=== PATIENT | female | born 1990 | race Hispanic/Latino ===

== ENCOUNTER 2020-03-13 08:32 | Emergency (ER) | payer OTHER, MEDICAID, SELFPAY ==
--- NOTE | 2020-03-13 08:39 | ED_ITS ---
HPI - General Adult General Chief complaint: Dizziness Stated complaint: weakness Time Seen by Provider: 03/13/20 08:39 History of Present Illness HPI narrative: 29-year-old woman with a history of ovarian cysts and reflux, presents feeling weak, dizzy, shaking, dyspneic and noting heart palpitations. 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 She states that she has had similar symptoms before and has been evaluated but no specific etiology was noted. She notes that she has been slightly more constipated recently she complains of urinary frequency but no dysuria. She has some mild upper abdominal pain bilaterally but no specific flank pain. She has not had fevers, cough, headaches. She does note that she has chronic back and upper neck pain with decreased range of motion at the neck due to the pain and has a physical therapy appointment scheduled to begin dealing with these chronic issues. She notes over the past month she has been sleeping well but has had significantly increased anxiety Related Data Allergies Allergy/AdvReac Type Severity Reaction Status Date / Time No Known Drug Allergies Allergy Verified 03/13/20 08:52 Review of Systems Review of Systems Narrative: Remainder of review of systems including constitutional, ENT, cardiovascular, respiratory, GI, , musculoskeletal, skin, neurologic and psychiatric systems reviewed and are unremarkable except as noted in HPI. Patient History Medical History Acid reflux (Acute) Ovarian cyst (Acute) Social History Smoking Status: Never smoker Exam Narrative Exam Narrative: General: Healthy appearing, in no acute distress. Able to give a complete and coherent history. Well-nourished well-developed HEENT: Moist mucous membranes, normal sclera with reactive pupils, Neck: No JVD, supple, neck is able to turn 45? bilaterally in further than that causes tenderness. There is no midline spine tenderness nor paraspinous or tra pezius muscle spasm Respiratory: Lungs are clear to auscultation, no wheezing no rales no rhonchi. Full and symmetrical air movement Cardiac: Regular rate and rhythm no murmurs no bruits Abdomen: Soft nontender good bowel tones, no flank pain Skin: Warm and dry, no rashes Neurologic: Grossly neurologically intact with no obvious asymmetries or abnormalities Extremities: No trauma, well perfused Psych: Cooperative, appropriate insight and affect Initial Vital Signs Initial Vital Signs: Vital Signs Temperature 97.6 F 03/13/20 08:52 Pulse Rate 73 03/13/20 08:52 Respiratory Rate 16 03/13/20 08:52 Blood Pressure 117/58 L 03/13/20 08:52 Pulse Oximetry 100 03/13/20 08:52 Course Orders Ordered: ED Orders 03/13/20 09:25 COVID19 -ED/INPAT/OR/L&D Stat 03/13/20 09:40 Complete Blood Count AUTO DIFF Stat Comprehensive Metabolic Panel Stat Lipase Stat Magnesium Stat Urinalysis and Microscopic Stat Discontinued Medications Sodium Chloride (Normal Saline 0.9%) 1,000 mls @ 1,000 mls/hr IV BOLUS ONE Stop: 03/13/20 09:49 Last Admin: 03/13/20 09:47 Dose: 1,000 mls/hr Documented by: LOS Vital Signs Vital signs: Vital Signs - 8 hr 03/13/20 08:52 Temperature 97.6 F Pulse Rate 73 Respiratory Rate 16 Blood Pressure 117/58 L Pulse Oximetry 100 Medical Decision Making Medical Records Medical records reviewed: Yes I reviewed the patient's medical records. Lab Data Lab results reviewed: Yes I reviewed the patient's lab results. Result diagrams: 03/13/20 09:40 03/13/20 09:40 Labs: Lab Results 03/13/20 03/13/20 03/13/20 Range/Units 09: 09:40 09:40 WBC 7.4 (4.5-11.0) X10^3/uL RBC 4.28 (4.0-5.2) X10^6/uL Hgb 12.5 (12.0-16.0) g/dL Hct 37.0 (36-46) % MCV 86.5 (80-100) fL MCH 29.2 (26-34) PG MCHC 33.8 (30-36) % RDW 13.3 (11.6-14.8) % Plt Count 209 (150-400) X10^3/uL Neut % (Auto) 73.4 (50-75) % Lymph % (Auto) 20.9 L (25-40) % Wood % (Auto) 3.7 (3-14) % Eos % (Auto) 1.2 L (2-4) % Baso % (Auto) 0.8 (0-2) % Neut # (Auto) 5400 (1782-9868) /uL Lymph # (Auto) 1500 (5067-2219) /uL Wood # (Auto) 300 (0-900) /uL Eos # (Auto) 100 (0-450) /uL Baso # (Auto) 100 (0-100) /uL Sodium 136 L (137-145) mmol/L Potassium 3.6 (3.4-5.1) mmol/L Chloride 105 (98-107) mmol/L Carbon Dioxide 23 (22-32) mmol/L BUN 11 (7-17) mg/dL Creatinine 0.63 (0.52-1.04) mg/dL Estimated GFR > 60.0 (>60) mL/min BUN/Creatinine Ratio 17.5 (6-22) Glucose 101 H (70-100) mg/dL Calcium 9.2 (8.4-10.2) mg/dL Magnesium 2.0 (1.6-2.3) mg/dL Total Bilirubin 0.6 (0.2-1.3) mg/dL AST 32 (14-36) IU/L ALT 29 (<35) IU/L Alkaline Phosphatase 56 (38-126) U/L Total Protein 7.4 (6.3-8.2) g/dL Albumin 4.4 (3.5-5.0) g/dL Globulin 3.0 (1.7-4.1) g/dL Albumin/Globulin Ratio 1.5 (1.0-2.8) Lipase 145 (23-300) U/L Urine Color Urine Appearance Urine pH (4.5-8.0) Ur Specific [place] (1.000-1.035) Urine Protein (Negative) Urine Glucose (UA) (Negative) g/dL Urine Ketones (NEGATIVE) Urine Occult Blood (Negative) Urine Nitrate (Negative) Urine Bilirubin (NEGATIVE) Urine Urobilinogen (0.2) E.U./dL Ur Leukocyte Esterase (NEGATIVE) Urine RBC (0-5/HPF) Urine WBC (0-5/HPF) Ur Squamous Epith Cells (0-5/HPF) Urine Bacteria (None) Ur Culture Indicated? COVID-19 PCR Negative (Negative) 03/13/20 Range/Units 09:40 WBC (4.5-11.0) X10^3/uL RBC (4.0-5.2) X10^6/uL Hgb (12.0-16.0) g/dL Hct (36-46) % MCV (80-100) fL MCH (26-34) PG MCHC (30-36) % RDW (11.6-14.8) % Plt Count (150-400) X10^3/uL Neut % (Auto) (50-75) % Lymph % (Auto) (25-40) % Wood % (Auto) (3-14) % Eos % (Auto) (2-4) % Baso % (Auto) (0-2) % Neut # (Auto) (7592-1496) /uL Lymph # (Auto) (7189-2248) /uL Wood # (Auto) (0-900) /uL Eos # (Auto) (0-450) /uL Baso # (Auto) (0-100) /uL Sodium (137-145) mmol/L Potassium (3.4-5.1) mmol/L Chloride (98-107) mmol/L Carbon Dioxide (22-32) mmol/L BUN (7-17) mg/dL Creatinine (0.52-1.04) mg/dL Estimated GFR (>60) mL/min BUN/Creatinine Ratio (6-22) Glucose (70-100) mg/dL Calcium (8.4-10.2) mg/dL Magnesium (1.6-2.3) mg/dL Total Bilirubin (0.2-1.3) mg/dL AST (14-36) IU/L ALT (<35) IU/L Alkaline Phosphatase (38-126) U/L Total Protein (6.3-8.2) g/dL Albumin (3.5-5.0) g/dL Globulin (1.7-4.1) g/dL Albumin/Globulin Ratio (1.0-2.8) Lipase (23-300) U/L Urine Color Yellow Urine Appearance Clear Urine pH 8.0 (4.5-8.0) Ur Specific [place] 1.015 (1.000-1.035) Urine Protein Negative (Negative) Urine Glucose (UA) Negative (Negative) g/dL Urine Ketones Trace H (NEGATIVE) Urine Occult Blood Negative (Negative) Urine Nitrate Negative (Negative) Urine Bilirubin Negative (NEGATIVE) Urine Urobilinogen 0.2 (0.2) E.U./dL Ur Leukocyte Esterase Negative (NEGATIVE) Urine RBC None seen (0-5/HPF) Urine WBC 0-1/hpf (0-5/HPF) Ur Squamous Epith Cells 1-5 /hpf (0-5/HPF) Urine Bacteria Occasional (0-1) (None) Ur Culture Indicated? Cult not indicated COVID-19 PCR (Negative) Point of Care Testing Test Results Negative Point of care testing: Point of Care Testing Test Results Negative ECG Data Attestation: I personally reviewed and interpreted this ECG as follows: Interpretation: Sinus rhythm of 49 Normal intervals, normal axis no ischemic changes MDM Narrative Medical decision making narrative: 29-year-old woman with acute onset of constellation of symptoms. Has never had full workup for the same and has had similar symptoms. Will check cardiac workup and also Covid status. Labs are all unremarkable. No evidence of , acute infection, urinary tract infection, renal or liver dysfunction, electrolyte abnormality or acute coronary syndrome.. No evidence of [place] id and no clinical evidence of acute stroke. Feeling somewhat better after fluids. No significant pathologic findings to explain the dizziness she has experienced today. Reassurance is given she is safe for home discharge Discharge Plan Departure Patient Disposition: Home Clinical Impression: Dizziness Instructions: DI for Dizziness-Nonvertigo Activity Restrictions/Additional Instructions: Thank you for coming in today Your workup was very reassuring. There is no evidence of acute infection, stroke, heart attack or heart attack like syndrome, no pneumonia, no kidney or liver abnormalities and no diabetes. You did feel better after a bit of fluid. I suspect that with some time and after a good lunch you will feel significantly better. I wish you the best Referrals: Lizbeth Freire PA-C [Primary Care Provider] -
[2020-03-13 08:52] VITALS: BP 117/58; PULSE 73; RESP 16; TEMP 36.4; O2SAT 100; BMI 32.0
[2020-03-13 09:43] LABS: Add Manual Diff / Slide Review NO; Basophils Absolute Auto 100 /uL (0-100); Basophils Percent Auto 0.8 % (0-2); Eosinophils Absolute Auto 100 /uL (0-450); Eosinophils Percent Auto 1.2 % (2-4); Hemoglobin 12.5 g/dL (12.0-16.0); Lymphocytes Absolute Auto 1500 /uL (1100-4500); Lymphocytes Percent Auto 20.9 % (25-40); Mean Corpuscular HGB Conc 33.8 % (30-36); Mean Corpuscular Hemoglobin 29.2 PG (26-34); Mean Corpuscular Volume 86.5 fL (80-100); Monocytes Absolute Auto 300 /uL (0-900); Monocytes Percent Auto 3.7 % (3-14); Neutrophils Absolute Auto 5400 /uL (1500-7000); Neutrophils Percent Auto 73.4 % (50-75); Platelet Count 209 X10^3/uL (150-400); Red Blood Cell Count 4.28 X10^6/uL (4.0-5.2); Red Cell Distribution Width 13.3 % (11.6-14.8); White Blood Cell Count 7.4 X10^3/uL (4.5-11.0)
[2020-03-13] MEDS: SODIUM CHLORIDE 0.9% 1,000 ML 1000 ML IV (09:47)
[2020-03-13 09:54] LABS: RBC Urine None Seen (0-5/HPF)
[2020-03-13 09:56] LABS: Alanine Aminotransferase 29 IU/L (<35); Albumin 4.4 g/dL (3.5-5.0); Albumin Globulin Ratio 1.5 (1.0-2.8); Alkaline Phosphatase 56 U/L (38-126); Appearance Urine UA CLEAR; Aspartate Aminotransferase 32 IU/L (14-36); BUN Creatinine Ratio 17.5 (6-22); Bilirubin Total 0.6 mg/dL (0.2-1.3); Bilirubin Urine UA NEGATIVE (NEGATIVE); Blood Urea Nitrogen 11 mg/dL (7-17); Calcium 9.2 mg/dL (8.4-10.2); Carbon Dioxide 23 mmol/L (22-32); Chloride 105 mmol/L (98-107); Color Urine UA YELLOW; Estimated Glomerular Filt Rate > 60.0 mL/min (>60); Glucose 101 mg/dL (70-100); Glucose Urine UA NEGATIVE (Negative); HEMOLYSIS 19 (0-50); Ketones Urine UA TRACE (NEGATIVE); Leukocyte Esterase Urine UA NEGATIVE (NEGATIVE); Lipase 145 U/L (23-300); Nitrite Urine UA NEGATIVE (Negative); Occult Blood Urine UA NEGATIVE (Negative); Potassium 3.6 mmol/L (3.4-5.1); Protein Urine UA NEGATIVE (Negative); Sodium 136 mmol/L (137-145); Specific Gravity Urine UA 1.015 (1.000-1.035); Total Protein 7.4 g/dL (6.3-8.2); Urobilinogen Urine UA 0.2 E.U./dL (0.2)
[2020-03-13 09:57] LABS: COVID19 -Nasal RAPID Negative (Negative)
[2020-03-13 10:00] VITALS: BP 100/58; PULSE 57; RESP 15; O2SAT 100
[2020-03-13 10:06] LABS: Bacteria Urine Occasional (0-1); Culture Indicated Urine Cult Not Indicated; Squamous Epithelial Cell Urine 1-5 /HPF (0-5/HPF); WBC Urine 0-1/HPF (0-5/HPF)
[2020-03-13 11:17] VITALS: BP 109/61; PULSE 62; RESP 16; O2SAT 100
== END 2020-03-13 11:20 | disposition home or self-care (01) ==
PROVIDERS: Emergency Provider Emergency Medicine; PCP Physician Assistant
DX: R42 Dizziness and giddiness (principal)
CPT/HCPCS: 36415; 80053; 81001; 81025; 83690; 83735; 85025; 87635; 93005; 96360; 99284

== ENCOUNTER → 2020-05-07 15:30 | Outpatient (CLI) | payer OTHER, MEDICAID, SELFPAY ==
--- NOTE | 2020-05-07 | DI.US.S_ITS ---
PROCEDURE: US PELVIC COMPLETE INDICATIONS: Polycystic ovarian syndrome Epigastric pain TECHNIQUE: Real-time scanning was performed of the pelvic organs, with image documentation. Additional endovaginal scanning was necessary due to incomplete visualization of the adnexal and endometrial structures by transabdominal scanning. COMPARISON: [facility], US, US PELVIC COMPLETE WITH TRANSVAGINAL, 02/25/2020, 8:13. [facility], US, US ABDOMEN COMPLETE, 05/07/2020, 16:02. FINDINGS: Transabdominal scanning: No pathologic free abdominal or pelvic fluid. On the accompanying abdominal ultrasound, the kidneys demonstrate a normal appearance. Endovaginal scanning: Uterus: Uterus is normal in size at 8.8 x 3.9 x 4.5 cm. The endometrium measures 4-5 mm in combined thickness. Ovaries: The right ovary measures 2.9 x 1.8 x 2.1 cm. The left ovary measures 3.3 x 2 x 1.7 cm. The ovaries have a normal sonographic appearance, with less than 12 follicles seen involving each ovary. No adnexal masses are seen. IMPRESSION: Normal pelvic ultrasound. Normal appearing ovaries, without an abnormal number of follicles to suggest polycystic ovarian syndrome. Dictated by: Cesar Medeiros M.D. on 05/07/2020 at 16:46 Approved by: Cesar Medeiros M.D. on 05/07/2020 at 16:48
--- NOTE | 2020-05-07 | DI.US.S_ITS ---
PROCEDURE: US ABDOMEN COMPLETE INDICATIONS: Polycystic ovarian syndrome Epigastric pain TECHNIQUE: Real-time scanning was performed of the abdominal and retroperitoneal organs, with image documentation. COMPARISON: [facility], US, US AORTA-ILIAC CAVA DPLX BILAT, 01/26/2017, 18:34. [facility], US, US PELVIC COMPLETE, 05/07/2020, 16:26. FINDINGS: Liver: Liver is normal in size and homogeneous in echotexture. Gallbladder: Removed. Biliary ducts: Intrahepatic bile ducts are non-dilated. Extrahepatic bile duct caliber measures 4 mm. Normal is 6-7 mm or less in diameter, or 10 mm or less post-cholecystectomy. Pancreas: Visualized portions of the pancreas are sonographically normal. Spleen: Spleen is normal in size and homogeneous in echotexture. Kidneys: Kidneys are normal in size and echotexture. Right kidney measures 11.5 cm long; left kidney measures 12.4 cm long. No hydronephrosis or nephrolithiasis. No solid masses. Aorta: Visualized aorta is normal in caliber at less than 3 cm. Iliacs: Proximal common iliac arteries are normal in caliber at less than 2.5 cm. IVC: Intrahepatic inferior vena cava is patent. Miscellaneous: No free abdominal fluid. IMPRESSION: Unremarkable study, status post cholecystectomy. Dictated by: Cesar Medeiros M.D. on 05/07/2020 at 16:44 Approved by: Cesar Medeiros M.D. on 05/07/2020 at 16:46
== END ==
PROVIDERS: PCP Physician Assistant; Referring Provider Physician Assistant; Visit Provider Physician Assistant
DX: E28.2 Polycystic ovarian syndrome (principal); R10.13 Epigastric pain
CPT/HCPCS: 76700; 76830; 76856

== ENCOUNTER → 2020-09-17 16:00 | Outpatient (CLI) | payer OTHER, MEDICAID, SELFPAY ==
[2020-09-17] MEDS: COVID-19 VACC #1, MRNA(MOD) 100 MCG/0.5 ML VIAL IM (16:03)
== END ==
PROVIDERS: PCP Physician Assistant; Visit Provider Nurse Practitioner Family
DX: Z23 Encounter for immunization (principal)
CPT/HCPCS: 0011A; 91301

== ENCOUNTER → 2020-10-15 14:39 | Outpatient (CLI) | payer OTHER, MEDICAID, SELFPAY ==
[2020-10-15] MEDS: COVID-19 VACC #2, MRNA(MOD) 100 MCG/0.5 ML VIAL IM (14:41)
== END ==
PROVIDERS: PCP Physician Assistant; Visit Provider Internal Medicine
DX: Z23 Encounter for immunization (principal)
CPT/HCPCS: 0012A; 91301